=== PATIENT | male | born 1990 | race Caucasian/White ===

== ENCOUNTER 2018-05-18 08:20 | Emergency (ER) | payer OTHER ==
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
== END 2018-05-18 09:16 | disposition home or self-care (01) ==
LOC: JP.ED 08:20
DX: K12.0 Recurrent oral aphthae (principal); F17.210 Nicotine dependence, cigarettes, uncomplicated
CPT/HCPCS: 99283

== ENCOUNTER 2018-08-08 17:41 | Emergency (ER) | payer OTHER ==
[2018-08-08] MEDS ORDERED: Albuterol/Ipratropium 3.0-0.5 MG/3 ML Neb Soln NEB ONE (18:50)
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
--- NOTE | 2018-08-09 09:45 | CR ---
CHEST: 2 view CLINICAL HISTORY:Wheezing COMPARISON:None FINDINGS: The heart size, pulmonary vascular and hilar structures are normal. No infiltrate effusion or pneumothorax is seen. IMPRESSION: No acute cardiopulmonary process.
== END 2018-08-08 20:04 | disposition home or self-care (01) ==
LOC: JP.ED 17:41
DX: J20.9 Acute bronchitis, unspecified (principal); Z87.891 Personal history of nicotine dependence
CPT/HCPCS: 36415; 71046; 71046-26; 80053; 85025; 87081; 87430; 94640; 99284-25; J7620-GY